=== PATIENT | male | born 1980 | race Caucasian/White ===

== ENCOUNTER 2024-08-01 09:30 | Emergency (ER) | payer OTHER ==
[2024-08-01] MEDS ORDERED: TDAP (DIPHTH,PERTUSS(ACELL),TET VAC) 0.5 ML VIAL IMVAC ONE (10:14)
--- NOTE | 2024-08-01 10:15 | EDPHYS ---
Physician Documentation [facility] Name: Gutierrez Cole Age: 44 yrs Sex: Male : 1980 Arrival Date: 08/01/2024 Time: 09:30 Bed 15 Private MD: ED Physician Donavon Wills HPI: 08/01 10:50 This 44 yrs old Male presents to ER via Wheelchair with complaints of Laceration To Leg rt - Right(3days ago). 10:50 Patient presents to the ED with a laceration to the right foster that occurred 3 days ago rt when patient tripped over a fence post. 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 Denies other injury, acute complaints, symptoms are moderate severity, no other aggravating or alleviating factors.. Historical: - Allergies: 09:44 Iodine; bp 09:44 PENICILLINS; bp - Home Meds: 09:44 None [Active]; bp - PMHx: 09:44 None; bp - Immunization history:: Last tetanus immunization: > 10 years ago. - Infectious Disease History:: Denies. - Social history:: Smoking status: unknown. - Family history:: not pertinent. ROS: 10:50 Constitutional: Negative for fever, chills, and weight loss, Cardiovascular: Negative rt for chest pain, palpitations, and edema, Respiratory: Negative for shortness of breath, cough, wheezing, and pleuritic chest pain, Abdomen/GI: Negative for abdominal pain, nausea, vomiting, diarrhea, and constipation, Neuro: Negative for headache, weakness, numbness, tingling, and seizure, 10:50 MS/extremity: Positive for laceration, Negative for deformity, Exam: 10:50 Constitutional: This is a well developed, well nourished patient who is awake, alert, rt and in no acute distress. Head/Face: Normocephalic, atraumatic. Chest/axilla: Normal chest wall appearance and motion. Nontender with no deformity. No lesions are appreciated. Cardiovascular: Regular rate and rhythm with a normal S1 and S2. No gallops, murmurs, or rubs. Normal PMI, no JVD. No pulse deficits. Respiratory: Lungs have equal breath sounds bilaterally, clear to auscultation and percussion. No rales, rhonchi or wheezes noted. No increased work of breathing, no retractions or nasal flaring. Neuro: Awake and alert, GCS 15, oriented to person, place, time, and situation. Cranial nerves II-XII grossly intact. Motor strength 5/5 in all extremities. Sensory grossly intact. Cerebellar exam normal. Normal gait. 10:50 Musculoskeletal/extremity: 6 cm "L" shaped laceration to the right foster, no apparent muscle body involvement, granulation tissue starting to form, no purulence, surrounding erythema. Vital Signs: 09:43 BP 140 / 106; Pulse 93; Resp 16; Temp 98; Pulse Ox 98% ; Weight 94.8 kg; Height 5 ft. bp 11 in. ; 09:43 Body Mass Index 29.15 (94.80 kg, 180.34 cm) bp MDM: 09:59 Medical Screening Exam initiated rt 10:50 Differential diagnosis: Laceration, wound infection. Data reviewed: vital signs, nurses rt notes. Test considered but Not performed: X-ray: Low suspicion for fracture, do not believe that x-rays are indicated. Counseling: I had a detailed discussion with the patient and/or guardian regarding the historical points, exam findings, and any diagnostic results supporting the discharge/admit diagnosis, the need for outpatient follow up, to return to the emergency department if symptoms worsen or persist or if there are any questions or concerns that arise at home. ED course: The fracture is 3 days old, primary wound repair is contraindicated due to risk of infection, will allow to heal by secondary intention. I discussed this at length with the patient, he understands and agrees. Patient was instructed to return for any signs of infection.. 08/01 10:12 Order name: Wound dressing; Complete Time: 10: rt 08/01 10:12 Order name: Dragan Wrap; Complete Time: : rt 08/01 10: Order name: Crutch Training; Complete Time: :25 rt Administered Medications: 10:21 Drug: Boostrix Tdap IM 0.5 ml IM once; as a single dose Route: IM; Site: left deltoid; cm10 10:31 Follow up: Response: (VIS) Vaccine information sheet provided today. Questions and/or cm10 concerns addressed. VIS edition date: May 22, 2021.; No adverse reaction Disposition Summary: 08/01/24 10:14 Discharge Ordered Notes: Location: Home rt Problem: new rt Symptoms: are unchanged rt Condition: Stable rt Diagnosis - Laceration to right lower leg rt Followup: rt - With: Private Physician - When: 2 - 3 days - Reason: Discharge Instructions: - Discharge Summary Sheet rt - Nonsutured Laceration Care rt Forms: - Medication Reconciliation Form rt - Antibiotic Education rt - Prescription Opioid Use rt - Patient Portal Instructions rt - Leadership Thank You Letter rt Prescriptions: - ondansetron 4 mg Oral Tablet,disintegrating - take 1 tablet ORAL route every 6 hours as needed for nausea; 15 tablet; rt Refills: 0, Product Selection Permitted - Doxycycline Monohydrate 100 mg Oral Tablet - take 1 tablet ORAL route every 12 hours for 10 days; 20 tablet; Refills: 0, rt Product Selection Permitted Signatures: Elvis Walton RN RN bp Donavon Wills MD MD rt Nichole Charlton RN RN cm10 Corrections: (The following items were deleted from the chart) 09:45 09:44 Allergies: No Known Allergies; bp bp
--- NOTE | 2024-08-01 10:15 | ER ---
Nurse's Notes [facility] Name: Gutierrez Cole Age: 44 yrs Sex: Male : 1980 Arrival Date: 08/01/2024 Time: 09:30 Bed 15 Private MD: Diagnosis: Laceration to right lower leg Presentation: 08/01 09:43 Chief complaint: Patient states: TRIP AND FALL OVER FENCE POST TUESDAY NIGHT, R ANTERIOR bp FOSTER LAC. Coronavirus screen: At this time, the client does not indicate any symptoms associated with coronavirus-19. Ebola Screen: No symptoms or risks identified at this time. Complicating Factors: There are no complicating factors for this patient. Initial Sepsis Screen: Does the patient meet any 2 criteria? No. Patient's initial sepsis screen is negative. Does the patient have a suspected source of infection? No. Patient's initial sepsis screen is negative. Risk Assessment: Do you want to hurt yourself or someone else? Patient reports no desire to harm self or others. Onset of symptoms is unknown. 09:43 Method Of Arrival: Wheelchair bp 09:43 Acuity: SERGE 3 bp Historical: - Allergies: 09:44 Iodine; bp 09:44 PENICILLINS; bp - Home Meds: 09:44 None [Active]; bp - PMHx: 09:44 None; bp - Immunization history:: Last tetanus immunization: > 10 years ago. - Infectious Disease History:: Denies. - Social history:: Smoking status: unknown. - Family history:: not pertinent. Screenin:59 [facility] ED Fall Risk Assessment (Adult) History of falling in the last 3 months, ll1 including since admission No falls in past 3 months (0 pts) Confusion or Disorientation No (0 pts) Intoxicated or Sedated No (0 pts) Impaired Gait No (0 pts) Mobility Assist Device Used No (0 pt) Altered Elimination No (0 pt) Score/Fall Risk Level 0 - 2 = Low Risk Maintained a safe environment, Hourly rounding (assess needs \T\ fall precautionary measures) done. Abuse screen: Denies threats or abuse. Nutritional screening: No deficits noted. Tuberculosis screening: No symptoms or risk factors identified. 10:30 [facility] ED Fall Risk Assessment (Adult) History of falling in the last 3 months, cm10 including since admission No falls in past 3 months (0 pts) Confusion or Disorientation No (0 pts) Intoxicated or Sedated No (0 pts) Impaired Gait No (0 pts) Mobility Assist Device Used No (0 pt) Altered Elimination No (0 pt) Score/Fall Risk Level 0 - 2 = Low Risk Oriented to surroundings, Maintained a safe environment, Hourly rounding (assess needs \T\ fall precautionary measures) done. Abuse screen: Denies threats or abuse. Denies injuries from another. Nutritional screening: No deficits noted. Tuberculosis screening: No symptoms or risk factors identified. Assessment: 09:59 General: Appears uncomfortable, Behavior is cooperative, appropriate for age, anxious. ll1 Pain: Complains of pain in right leg Quality of pain is described as aching. Derm: Reports L shaped deep laceration to RLE 3 night ago. No drainage at this time. Musculoskeletal: Circulation, motion, and sensation intact. Capillary refill < 3 seconds, in right toes. Injury Description: Laceration. 10:31 Injury Description: Laceration is. cm10 Vital Signs: 09:43 BP 140 / 106; Pulse 93; Resp 16; Temp 98; Pulse Ox 98% ; Weight 94.8 kg; Height 5 ft. bp 11 in. ; 09:43 Body Mass Index 29.15 (94.80 kg, 180.34 cm) bp ED Course: 09:32 Patient arrived in ED. ra3 09:35 Donavon Wills MD is Attending Physician. rt 09:44 Triage completed. bp 09:44 Arm band placed on. bp 09:57 Kyaw Chery, RN is Primary Nurse. ll1 10:29 Patient has correct armband on for positive identification. Bed in low position. Call cm10 light in reach. Provided Education on: Follow-up instructions. 10:29 No provider procedures requiring assistance completed. Patient did not have IV access cm10 during this emergency room visit. Crutch training done. Dragan wrap to Right lower leg. Wound care: to laceration located on right foster was dressed with 4X4s. Administered Medications: 10:21 Drug: Boostrix Tdap IM 0.5 ml IM once; as a single dose Route: IM; Site: left deltoid; cm10 10:31 Follow up: Response: (VIS) Vaccine information sheet provided today. Questions and/or cm10 concerns addressed. VIS edition date: May 22, 2021.; No adverse reaction Medication: 10:30 Vaccine Information Statement (VIS) provided today. Questions and/or concerns cm10 addressed. VIS edition date: May 22, 2021. Outcome: 10:14 Discharge ordered by . rt 10:30 Discharged to home ambulatory, with crutches, with significant other, cm10 10:30 Condition: good 10:30 Discharge instructions given to patient, Instructed on discharge instructions, follow up and referral plans. medication usage, crutch walking, wound care, Demonstrated understanding of instructions, follow-up care, medications, wound care, crutch walking, Prescriptions given X 2, 10:31 Patient left the ED. cm10 Signatures: Elvis Walton RN RN bp Kyaw Chery RN RN ll1 Donavon Wills MD MD rt Nichole Charlton RN RN cm10 Maggie Arevalo ra3 Corrections: (The following items were deleted from the chart) 09:45 09:44 Allergies: No Known Allergies; bp bp
[2024-08-01 11:15] VITALS: BP 140/106; TEMP 98; O2SAT 98
== END 2024-08-01 10:31 | disposition home or self-care (01) ==
LOC: ER 09:30
DX: S81.811A Laceration without foreign body, right lower leg, initial encounter (principal)
CPT/HCPCS: 96372; 99284